=== PATIENT | female | born 1955 | race African-American/Black ===

== ENCOUNTER → 2021-06-15 00:36 | Outpatient (CLI) | payer MEDICARE, SELFPAY ==
[2021-06-15 19:52] LABS: SARS-CoV-2 RNA PCR Negative
== END ==
PROVIDERS: PCP Family Medicine; Visit Provider Family Medicine
DX: R68.89 Other general symptoms and signs (principal); Z20.822 Contact with and (suspected) exposure to COVID-19
CPT/HCPCS: C9803; U0003; U0005

== ENCOUNTER → 2022-08-29 13:49 | Outpatient (CLI) | payer MEDICARE, SELFPAY ==
--- NOTE | ~2022-08-29 | MM_ITS ---
EXAMINATION: MM screening khang BI w jackelyn HISTORY: Screening mammogram TECHNIQUE: Craniocaudal and mediolateral oblique 3-D tomosynthesis images were obtained and synthetic 2-D images were generated. CAD analysis was submitted and interpreted. COMPARISON: No prior mammogram is available for comparison at this institution. BREAST PARENCHYMAL COMPOSITION: There are scattered areas of fibroglandular density. FINDINGS: RIGHT BREAST: There is focal asymmetry in the anterior third of the upper-outer quadrant breast. LEFT BREAST: No suspicious mass, calcification, or architectural distortion are identified to suggest malignancy. IMPRESSION: 1. Right breast focal asymmetry. 2. Additional mammographic views and possible breast ultrasound are recommended. BI-RADS Category 0: Incomplete: Needs additional imaging evaluation. Reviewed, dictated and finalized at location A. ECHNICIAL PROPERTIES TECHNICIAN IMPRESSION: 1. Right breast focal asymmetry. 2. Additional mammographic views and possible breast ultrasound are recommended . BI-RADS Category 0: Incomplete: Needs additional imaging evaluation.
== END ==
PROVIDERS: PCP Family Medicine; Visit Provider Family Medicine
DX: Z12.31 Encounter for screening mammogram for malignant neoplasm of breast (principal); R92.8 Other abnormal and inconclusive findings on diagnostic imaging of breast
CPT/HCPCS: 77063; 77067

== ENCOUNTER 2022-09-18 08:28 | Outpatient (CLI) | payer MEDICARE, SELFPAY ==
--- NOTE | ~2022-09-18 | MMUS_ITS ---
EXAMINATION: MM diagnostic khang RT w jackelyn, US breast RT limited HISTORY: Follow-up right breast asymmetry TECHNIQUE: Additional 3-D tomosynthesis images of the right breast were performed and synthetic 2-D i mages were generated. CAD analysis was submitted and interpreted. High resolution Limited right breas t ultrasound was performed. COMPARISON: 08/29/2022 BREAST PARENCHYMAL COMPOSITION: Breast composed of scattered areas of fibroglandular density. FINDINGS: MAMMOGRAPHIC FINDINGS: Focal right breast asymmetry in the upper outer quadrant of the right breast anteriorly is persistent , although no discrete mass or architectural distortion is seen. No suspicious calcifications. ULTRASOUND: Limited right breast ultrasound: At 10-11 o'clock, 2 cm from the areola there is an oval circumscribe d hypoechoic mass with parallel orientation and posterior shadowing. No internal vascularity. This ma ss measures 10 x 10 x 6 mm. IMPRESSION: 1. Heterogeneous solid 1 cm right breast mass at 10-11:00, 2 cm from the nipple with posterior shadow ing. 2. Ultrasound-guided biopsy recommended. BI-RADS category 4, suspicious findings. Reviewed, dictated and finalized at location A. TREAT OPERATOR IMPRESSION: 1. Heterogeneous solid 1 cm right breast mass at 10-11:00, 2 cm from the nipple with posterior shadowing. 2. Ultrasound-guided biopsy recommended. BI-RADS category 4, suspicious findings.
== END 2022-09-18 08:29 ==
LOC: MICIMG 08:30
PROVIDERS: PCP Family Medicine; Visit Provider Family Medicine
DX: R92.8 Other abnormal and inconclusive findings on diagnostic imaging of breast (principal)
CPT/HCPCS: 76642; 77061; 77065; G0279

== ENCOUNTER 2022-10-09 10:03 | Outpatient (CLI) | payer MEDICARE, SELFPAY ==
--- NOTE | ~2022-10-09 | MMUS_ITS ---
EXAMINATION: US GUIDED NEEDLE BIOPSY DATE: 10/09/2022 15:04 RN DISEASE MANAGEMENT INDICATION: 1 cm right sonographic breast mass at 10-11 o'clock 2 cm from nipple TECHNIQUE AND FINDINGS: The risks and potential benefits of the procedure were discussed with the patient, and written inform ed consent was obtained. Timeout procedure was performed. After sterile preparation of the right [address], 1% lidocaine was utilized for local anesthesia. A 14G spring-loaded biopsy gun needle was advanced to the edge of the region of interest from a later al approach utilizing sonographic guidance. A total of 4 tissue core samples were obtained through t he lesion. An Inrad tissue marker clip was then placed at the biopsy site. Hemostasis was achieved. A sterile bandage was applied. The patient tolerated procedure well and there was no evidence of immediate complication. The patien t was given verbal instructions prior to departing from the department. A two view mammogram was perf ormed to document tissue marker clip placement. The tissue samples were submitted to surgical patholo gy for histologic analysis. IMPRESSION: 1. Successful ultrasound guided biopsy of right 10-11:00 breast mass with biopsy marker placement. P lease refer to pathology report for histologic analysis. Reviewed, dictated and finalized at [facility]. Reviewed, dictated and finalized at location A. DISEASE MANAGEMENT IMPRESSION: 1. Successful ultrasound guided biopsy of right 10-11:00 breast mass with biop sy marker placement. Please refer to pathology report for histologic analysis.
== END 2022-10-09 10:04 | disposition home or self-care (01) ==
PROVIDERS: PCP Family Medicine; Visit Provider Family Medicine
DX: R92.8 Other abnormal and inconclusive findings on diagnostic imaging of breast (principal)
CPT/HCPCS: 19083; 88305; A4648

== ENCOUNTER 2024-03-12 08:17 | Emergency (ER) | payer MEDICARE, SELFPAY ==
[2024-03-12 08:32] VITALS: BP 160/74; PULSE 81; RESP 14; TEMP 36.1; O2SAT 99
--- NOTE | 2024-03-12 08:35 | ED.URI ---
HPI - URI/Sore Throat General Chief Complaint: Upper Respiratory Infection Stated Complaint: Cold Symptoms Source: patient and RN notes reviewed Mode of arrival: ambulatory Limitations: no limitations History of Present Illness HPI Narrative: 68 y/o female presented for c/o cough and nasal congestion, pressure and drainage for almost 10 days. Taking delsym, zyrtec and mucinex. Cough was green, now clear, keeping her up at night. Denies sob, wheezing, n/v/d/f/c. MD elicited complaint: cough Related Data Home Medications Medication Instructions Recorded Confirmed amlodipine 5 mg tablet 5 mg PO DAILY 03/12/24 03/12/24 atorvastatin 20 mg tablet 20 mg PO DAILY 03/12/24 03/12/24 duloxetine 60 mg capsule,delayed 60 mg PO DAILY 03/12/24 03/12/24 release losartan 100 1 tablet PO DAILY 03/12/24 03/12/24 mg-hydrochlorothiazide 12.5 mg tablet montelukast 10 mg tablet 10 mg PO DAILY 03/12/24 03/12/24 omeprazole 20 mg capsule,delayed 20 mg PO DAILY 03/12/24 03/12/24 release Allergies Allergy/AdvReac Type Severity Reaction Status Date / Time Penicillins Allergy Mild Hives Verified 03/12/24 08:36 Review of Systems Review of Systems: CONSTITUTIONAL: denies malaise, chills, sweats, fever EYES: Denies visual changes, redness, or discharge ENT: Reports rhinorrhea, congestion, sinus pain, denies otalgia, sore throat CARDIOVASCULAR: Denies chest pain, palpitations, edema RESPIRATORY: Reports cough, post nasal drainage. Denies dyspnea GASTROINTESTINAL: Denies abdominal pain, nausea, vomiting, diarrhea SKIN: Denies rash or itching MUSCULOSKELETAL: denies myalgia NEUROLOGIC: Denies headache [facility] Past Medical History Medical History (Updated 03/12/24 @ 08:49 by Raquel Chavez APRN) Hypertension Exam Narrative: GENERAL: well-appearing, nontoxic no acute distress. HEAD: Normocephalic EYES: PERRLA, conjunctivae clear ENT: Mucous membranes moist. TM pearly collado with dull light reflex bilaterally; no tragal tenderness. Oropharynx not erythematous without lesions or exudate, no drooling, no hoarseness, no trismus, uvula midline. No tripod positioning, muffled voice, soft palate or pharyngeal wall bulging NECK: Supple. No lymphadenopathy CHEST: Exp wheezing to bilateral bases. No respiratory distress, speaks in full sentences. HEART: Regular rate and rhythm. No murmur heard. SKIN: Warm, dry, no rash. NEURO: Alert and oriented x3. PSYCH: Normal mood and affect Course Course Emergency Course: Patient is aware of diagnosis, understands and agrees to treatment plan. Anticipatory guidance given. Patient agrees to follow-up as directed and is aware of reasons to seek care at the emergency department. Portions of this record may have been created with voice recognition software Level of Care: Express Care Visit Vital Signs Vital signs: Vital Signs Temperature 97.0 F L 03/12/24 08:32 Pulse Rate 81 03/12/24 08:32 Respiratory Rate 14 03/12/24 08:32 Blood Pressure 160/74 H 03/12/24 08:32 Pulse Oximetry 99 03/12/24 08:32 Oxygen Delivery Room Air 03/12/24 08:32 Temperature 97.0 F L 03/12/24 08:32 Pulse Rate 81 03/12/24 08:32 Respiratory Rate 14 03/12/24 08:32 Blood Pressure 160/74 H 03/12/24 08:32 Pulse Oximetry 99 03/12/24 08:32 Oxygen Delivery Room Air 03/12/24 08:32 reviewed MDM - URI/Sore Throat MDM Narrative Medical decision making narrative: Discussed physical exam findings. Advised supportive measures and signs/symptoms to go to the ER. Pt is appropriate for outpt treatment and f/u. Differential Diagnosis Differential diagnosis: Likely upper respiratory infection, otitis media, sinusitis, viral infection and influenza Discharge Plan Discharge Clinical Impression: Sinusitis Patient Disposition: Home, Self-Care Condition: Stable Instructions: Antibiotic Form, Sinusitis (ED) Additional Instructions: Take antibiotic and steroid as directed
== END 2024-03-12 08:47 | disposition home or self-care (01) ==
PROVIDERS: Emergency Provider Nurse Practitioner Family
DX: J32.9 Chronic sinusitis, unspecified (principal); I10 Essential (primary) hypertension
CPT/HCPCS: 99213; G0463

== ENCOUNTER 2024-05-13 08:44 | Outpatient (CLI) | payer MEDICARE, SELFPAY ==
[2024-05-13 12:51] LABS: Hematocrit 38.9 % (37.0-47.0); Hemoglobin 12.3 g/dL (12.0-15.0); Mean Corpuscular HGB Conc 31.6 g/dl (32-36); Mean Corpuscular Volume 82.2 fl (80-100); Mean Platelet Volume 10.8 fl (7.4-10.4); Platelet Count Result 389 k/mm3 (150-375); Red Blood Count 4.73 M/mm3 (4.2-5.4); Red Cell Distribution Width 14.5 % (11.5-14.5); White Blood Count 6.5 K/mm3 (4.5-10.0)
[2024-05-13 12:57] LABS: Alanine Aminotransferase 66 U/L (6-35); Albumin Level 4.4 g/dL (3.5-5.1); Alkaline Phosphatase 85 U/L (38-126); Anion Gap 9 mmol/L (4-12); Aspartate Amino Transferase 71 U/L (14-36); Bilirubin,Total 0.3 mg/dL (0.2-1.3); Blood Urea Nitrogen 15 mg/dL (7-17); Calcium 9.4 mg/dL (8.4-10.2); Carbon Dioxide 30 mmol/L (22-30); Chloride 101 mmol/L (98-107); Cholesterol 146 mg/dL (0-200); Estimated Glomerular Filt Rate > 60; Glucose 98 mg/dL (65-110); HDL Direct 63 mg/dL; Potassium 3.9 mmol/L (3.4-5.0); Sodium 140 mmol/L (137-145); Triglycerides 90 mg/dL (<150)
[2024-05-13 13:07] LABS: LDL Cholesterol Direct 56 mg/dL
[2024-05-13 14:40] LABS: Hemoglobin A1C 5.9 % (<5.7)
== END 2024-05-13 08:45 | disposition home or self-care (01) ==
LOC: ANHGOSHLAB 08:46
PROVIDERS: PCP Family Medicine; Visit Provider Family Medicine
DX: E66.9 Obesity, unspecified (principal); I10 Essential (primary) hypertension; Z79.899 Other long term (current) drug therapy; R73.03 Prediabetes
CPT/HCPCS: 36415; 80053; 80061; 83036; 84443; 85027

== ENCOUNTER 2024-05-27 08:39 | Outpatient (CLI) | payer MEDICARE, SELFPAY ==
[2024-05-27 17:51] LABS: Alanine Aminotransferase 128 U/L (6-35); Albumin Level 4.4 g/dL (3.5-5.1); Alkaline Phosphatase 73 U/L (38-126); Anion Gap 11 mmol/L (4-12); Aspartate Amino Transferase 92 U/L (14-36); Bilirubin,Total 0.5 mg/dL (0.2-1.3); Blood Urea Nitrogen 13 mg/dL (7-17); Calcium 9.4 mg/dL (8.4-10.2); Carbon Dioxide 29 mmol/L (22-30); Chloride 99 mmol/L (98-107); Estimated Glomerular Filt Rate > 60; Glucose 86 mg/dL (65-110); Potassium 3.8 mmol/L (3.4-5.0); Sodium 139 mmol/L (137-145)
== END 2024-05-27 08:40 | disposition home or self-care (01) ==
PROVIDERS: PCP Family Medicine; Visit Provider Family Medicine
DX: R74.8 Abnormal levels of other serum enzymes (principal)
CPT/HCPCS: 36415; 80053

== ENCOUNTER 2024-05-29 08:11 | Outpatient (CLI) | payer MEDICARE, SELFPAY ==
--- NOTE | ~2024-05-29 | US_ITS ---
US abdomen complete EXAMINATION: US Abdomen Complete INDICATION: Abnormal laboratory studies PROCEDURE: Realtime High Resolution abdomen ultrasound. COMPARISON: No prior studies for comparison FINDINGS: Gallbladder within normal limits. No gallstones, pericholecystic fluid, gallbladder wall t hickening or biliary dilatation. Common bile duct measures 4 mm. Liver echotexture is increased, consistent with fatty infiltration.. There are liver cysts, largest m easuring 1.9 cm in the right hepatic lobe. Pancreas within normal limits. Pancreatic tail is obscure d by bowel gas. Spleen is unremarkeable. Renal echotexture is within normal limits bilaterally witho ut hydronephrosis, contour deforming mass or renal stone. Right kidney measures 9 cm. Left kidney tiago sures 9 cm. Visualized aspects of the aorta and IVC are within normal limits. Portal vein is patent. No sonograph ic Lockett's sign indicated by the technologist. IMPRESSION: 1: Fatty infiltration of the liver. Liver cysts. Reviewed, dictated and finalized at location B.
== END 2024-05-29 08:12 ==
LOC: GOSHIMG 08:12
PROVIDERS: PCP Family Medicine; Visit Provider Nurse Practitioner
DX: R74.8 Abnormal levels of other serum enzymes (principal); K76.0 Fatty (change of) liver, not elsewhere classified; K76.89 Other specified diseases of liver
CPT/HCPCS: 76700

== ENCOUNTER 2024-06-09 08:47 | Outpatient (CLI) | payer MEDICARE, SELFPAY ==
[2024-06-09 14:02] LABS: Alanine Aminotransferase 109 U/L (6-35); Albumin Level 4.4 g/dL (3.5-5.1); Alkaline Phosphatase 69 U/L (38-126); Aspartate Amino Transferase 72 U/L (14-36); Bilirubin,Total 0.5 mg/dL (0.2-1.3)
== END 2024-06-09 08:48 | disposition home or self-care (01) ==
PROVIDERS: PCP Family Medicine; Visit Provider Family Medicine
DX: R74.8 Abnormal levels of other serum enzymes (principal)
CPT/HCPCS: 36415; 80076

== ENCOUNTER 2024-07-07 09:06 | Outpatient (CLI) | payer MEDICARE, SELFPAY ==
[2024-07-07 14:37] LABS: Cholesterol 210 mg/dL (0-200); HDL Direct 64 mg/dL; Triglycerides 80 mg/dL (<150)
[2024-07-07 14:45] LABS: Hematocrit 39.6 % (37.0-47.0); Mean Corpuscular HGB Conc 30.3 g/dl (32-36); Mean Corpuscular Hemoglobin 24.9 pg (26-34); Mean Corpuscular Volume 82.3 fl (80-100); Mean Platelet Volume 10.1 fl (7.4-10.4); Platelet Count Result 390 k/mm3 (150-375); Red Blood Count 4.81 M/mm3 (4.2-5.4); Red Cell Distribution Width 14.2 % (11.5-14.5); White Blood Count 6.3 K/mm3 (4.5-10.0)
[2024-07-07 14:48] LABS: LDL Cholesterol Direct 95 mg/dL
[2024-07-07 17:18] LABS: Hemoglobin A1C 5.9 % (<5.7)
[2024-07-08 15:44] LABS: Alanine Aminotransferase 34 U/L (6-35); Albumin Level 4.2 g/dL (3.5-5.1); Alkaline Phosphatase 68 U/L (38-126); Anion Gap 6 mmol/L (4-12); Aspartate Amino Transferase 35 U/L (14-36); Bilirubin,Total 0.4 mg/dL (0.2-1.3); Blood Urea Nitrogen 14 mg/dL (7-17); Calcium 9.5 mg/dL (8.4-10.2); Carbon Dioxide 30 mmol/L (22-30); Chloride 103 mmol/L (98-107); Estimated Glomerular Filt Rate > 60; Glucose 87 mg/dL (65-110); Potassium 4.3 mmol/L (3.4-5.0); Sodium 139 mmol/L (137-145)
== END 2024-07-07 09:07 | disposition home or self-care (01) ==
LOC: ANHGOSHLAB 09:08
PROVIDERS: PCP Family Medicine; Visit Provider Family Medicine
DX: R73.03 Prediabetes (principal); E66.9 Obesity, unspecified; Z79.899 Other long term (current) drug therapy; I10 Essential (primary) hypertension
CPT/HCPCS: 36415; 80053; 80061; 83036; 84443; 85027

== ENCOUNTER 2024-10-12 10:01 | Outpatient (CLI) | payer MEDICARE, SELFPAY ==
[2024-10-12 14:38] LABS: Alanine Aminotransferase 29 U/L (6-35); Albumin Level 4.3 g/dL (3.5-5.1); Alkaline Phosphatase 72 U/L (38-126); Anion Gap 5 mmol/L (4-12); Aspartate Amino Transferase 48 U/L (14-36); Bilirubin,Total 0.7 mg/dL (0.2-1.3); Blood Urea Nitrogen 14 mg/dL (7-17); Calcium 9.7 mg/dL (8.4-10.2); Carbon Dioxide 32 mmol/L (22-30); Chloride 102 mmol/L (98-107); Cholesterol 211 mg/dL (0-200); Estimated Glomerular Filt Rate > 60; Glucose 88 mg/dL (65-110); HDL Direct 70 mg/dL; Potassium 3.8 mmol/L (3.4-5.0); Sodium 139 mmol/L (137-145); Triglycerides 100 mg/dL (<150)
[2024-10-12 14:49] LABS: LDL Cholesterol Direct 94 mg/dL; Vitamin D 25 Hydroxy 52.7 ng/mL
[2024-10-12 15:34] LABS: Hemoglobin A1C 5.8 % (<5.7)
== END 2024-10-12 10:02 | disposition home or self-care (01) ==
LOC: ANHGOSHLAB 10:02
PROVIDERS: PCP Family Medicine; Visit Provider Nurse Practitioner
DX: E55.9 Vitamin D deficiency, unspecified (principal); E78.5 Hyperlipidemia, unspecified; I10 Essential (primary) hypertension; R73.03 Prediabetes
CPT/HCPCS: 36415; 80053; 80061; 82306; 83036

== ENCOUNTER 2025-03-05 12:34 | Outpatient (CLI) | payer MEDICARE, SELFPAY ==
--- NOTE | ~2025-03-05 | MM_ITS ---
EXAMINATION: MM screening khang BI w jackelyn HISTORY: Screening TECHNIQUE: Craniocaudal and mediolateral oblique 3-D tomosynthesis images were obtained and synthetic 2-D images were generated. CAD analysis was submitted and interpreted. COMPARISON: Comparison to multiple prior studies sequentially, with oldest reviewed study dated 08/02. BREAST PARENCHYMAL COMPOSITION: Not dense: There are scattered areas of fibroglandular density. FINDINGS: There is no evidence of suspicious mass, calcification, or architectural distortion to sugg est malignancy in either breast. There has been no suspicious interval change. IMPRESSION: 1. No mammographic evidence of malignancy. 2. Recommend routine screening mammography in one year. BI-RADS Category 1: Negative Reviewed, dictated and finalized at location B.
== END 2025-03-05 12:35 | disposition home or self-care (01) ==
LOC: MICIMG 12:35
PROVIDERS: PCP Family Medicine; Visit Provider Nurse Practitioner
DX: Z12.31 Encounter for screening mammogram for malignant neoplasm of breast (principal)
CPT/HCPCS: 77063; 77067

== ENCOUNTER 2025-03-09 08:42 | Outpatient (CLI) | payer MEDICARE, SELFPAY ==
--- OUTSIDE RECORDS SUMMARY | 2025-03-09 08:57 | XMS_ITS | Clinical Summary ---
Author Organization [facility] Address [address] [place] [id number] Care Team Providers Care Conditioning Machine Operator Name Role Phone Unavailable Primary Care Provider Unavailabl e Allergies Active Allergy Reactions Criticality Noted Date Comments Penicillins Hives,Rash Medications losartan (COZAAR) 100 MG Tablet Active omeprazole (PRILOSEC) 20 MG CAPSULE DELAYED RELEASE Active AMLODIPINE BESY-BENAZEPRIL HCL PO Active DULoxetine (CYMBALTA) [address] Particles Active Active Problems Problem Noted Date Diagnosed Date Esophageal reflux Immunizations Immunization Administration Dates Next Due Covid-19, Mrna, Lnp-s, Pf, 30 Mcg/0.3 Ml Dose (P jerseyzer) 07/28/2021 Social History Tobacco Use Types Packs/Day Years Used Date Smoking Tobacco: Never Assessed Comments Unknown Sex and Gender Information Value Date Recorded Sex Assigned at Not on file Legal Sex Female 12:33 AM CDT Gender Identity Not on file Sexual Orientation Not on file Plan of Treatment Health Maintenance Due Date Last Done Comments DEXA Bone Density 1955 Hepatitis C Virus (HCV) Screening 1955 TdaP Immunization 1955 Colonoscopy 2001 Colorectal Cancer Screening 2001 Cologuard 2006 Immunochemical Fecal Occult Blood 2006 Mammogram 2006 Pneumococcal Immunization (50+ years) (1 of 1 - PCV) 2006 Zoster Immunization (1 of 2) 2006 Influenza Immunization (#1) 05/31/202406/30, 08/05/2019, 07/24/2018, Additional history exists SARS-COV-2 Immunization ( season) 2024 07/28/2021, 01/08/2021, 12/15/2020 Respiratory Syncytial Virus (RSV) Immunization (Adult) (1 - 1-dose 75+ series) 2031 Hepatitis B Immunization Aged Out No longer eligible based on patient's age to complete this topic Meningococcal Immunization (ACWY) Aged Out No longer eligible based on patient's age to complete this topic Rotavirus Immunization Aged Out No lo nger eligible based on patient's age to complete this topic
--- OUTSIDE RECORDS SUMMARY | 2025-03-09 08:57 | XMS_ITS | Continuity of Care Document ---
Author Name [facility] Organization [facility] Care Team Providers Care Automotive Internet Sales Manager Name Role Phone [facility] Unavailable Unavailable Social History Combined list of available smoking, tobacco, and other social history from Department of Defense and Veterans Affairs facilities. Social History Type Response Date Comment Sourc e This section is an empty social history section. [facility]
[2025-03-09 16:54] LABS: Alanine Aminotransferase 26 U/L (6-35); Albumin Level 4.4 g/dL (3.5-5.1); Alkaline Phosphatase 71 U/L (38-126); Anion Gap 7 mmol/L (4-12); Aspartate Amino Transferase 83 U/L (14-36); Bilirubin,Total 0.4 mg/dL (0.2-1.3); Blood Urea Nitrogen 15 mg/dL (7-17); Calcium 9.5 mg/dL (8.4-10.2); Carbon Dioxide 29 mmol/L (22-30); Chloride 104 mmol/L (98-107); Cholesterol 180 mg/dL (0-200); Estimated Glomerular Filt Rate 58; Glucose 81 mg/dL (65-110); HDL Direct 66 mg/dL; Potassium 3.8 mmol/L (3.4-5.0); Sodium 140 mmol/L (137-145); Total Protein 7.6 g/dL (6.3-8.2); Triglycerides 83 mg/dL (<150)
[2025-03-09 17:04] LABS: Hemoglobin A1C 5.8 % (<5.7)
[2025-03-09 17:06] LABS: LDL Cholesterol Direct 62 mg/dL
[2025-03-09 17:37] LABS: Hematocrit 39.1 % (37.0-47.0); Mean Corpuscular HGB Conc 30.7 g/dl (32-36); Mean Corpuscular Hemoglobin 24.9 pg (26-34); Mean Corpuscular Volume 81.3 fl (80-100); Mean Platelet Volume 10.5 fl (7.4-10.4); Platelet Count Result 381 k/mm3 (150-375); Red Blood Count 4.81 M/mm3 (4.2-5.4); Red Cell Distribution Width 14.7 % (11.5-14.5); White Blood Count 6.8 K/mm3 (4.5-10.0)
== END 2025-03-09 08:43 | disposition home or self-care (01) ==
PROVIDERS: PCP Family Medicine; Visit Provider Family Medicine
DX: Z79.899 Other long term (current) drug therapy (principal); I10 Essential (primary) hypertension; R73.03 Prediabetes; R74.8 Abnormal levels of other serum enzymes; K76.0 Fatty (change of) liver, not elsewhere classified; Z11.59 Encounter for screening for other viral diseases
CPT/HCPCS: 36415; 80053; 80061; 82248; 83036; 84443; 85027

== ENCOUNTER 2025-08-03 08:12 | Outpatient (CLI) | payer MEDICARE, SELFPAY ==
[2025-08-03 13:09] LABS: Hematocrit 38.4 % (37.0-47.0); Hemoglobin 11.9 g/dL (12.0-15.0); Mean Corpuscular HGB Conc 31.0 g/dl (32-36); Mean Corpuscular Hemoglobin 25.4 pg (26-34); Mean Corpuscular Volume 82.1 fl (80-100); Platelet Count Result 379 k/mm3 (150-375); Red Blood Count 4.68 M/mm3 (4.2-5.4); White Blood Count 6.3 K/mm3 (4.5-10.0)
[2025-08-03 13:18] LABS: Alanine Aminotransferase 44 U/L (6-35); Albumin Level 4.5 g/dL (3.5-5.1); Alkaline Phosphatase 73 U/L (38-126); Anion Gap 8 mmol/L (4-12); Aspartate Amino Transferase 56 U/L (14-36); Bilirubin,Total 0.5 mg/dL (0.2-1.3); Blood Urea Nitrogen 15 mg/dL (7-17); Calcium 9.6 mg/dL (8.4-10.2); Carbon Dioxide 29 mmol/L (22-30); Chloride 102 mmol/L (98-107); Cholesterol 184 mg/dL (0-200); Estimated Glomerular Filt Rate 58; Glucose 88 mg/dL (65-110); HDL Direct 59 mg/dL; Potassium 3.9 mmol/L (3.4-5.0); Sodium 139 mmol/L (137-145); Total Protein 7.9 g/dL (6.3-8.2); Triglycerides 86 mg/dL (<150)
[2025-08-03 14:08] LABS: Thyroid Stimulating Hormone 1.820 uIU/mL (0.465-4.680)
[2025-08-03 15:54] LABS: Hemoglobin A1C 5.7 % (<5.7)
== END 2025-08-03 08:13 | disposition home or self-care (01) ==
PROVIDERS: PCP Family Medicine; Visit Provider Family Medicine
DX: R74.8 Abnormal levels of other serum enzymes (principal); Z79.899 Other long term (current) drug therapy; I10 Essential (primary) hypertension; E78.5 Hyperlipidemia, unspecified; R73.03 Prediabetes; E66.9 Obesity, unspecified
CPT/HCPCS: 36415; 80053; 80061; 83036; 84443; 85027

== ENCOUNTER 2025-08-09 09:01 | Outpatient (CLI) | payer MEDICARE, SELFPAY ==
--- NOTE | ~2025-08-09 | US_ITS ---
LIMITED ABDOMINAL ULTRASOUND INDICATION: Abnormal levels of other serum enzymes COMPARISON: May 29, 2024 FINDINGS: Liver: There is a 1.9 cm cyst in the anterior left lobe of the liver. Although it is only hypoechoic on the current study, it did appear cystic on the prior study. It has not significantly changed in size. Additionally, there is an anterior cyst in the liver which has decreased in size to 1.3 cm. Common bile duct: Normal in size. Gallbladder: The gallbladder wall is normal in thickness. No stones or sludge were seen. Lockett's sign: Negative Pancreas: Obscured by overlying bowel gas. Right kidney: Right kidney appears normal on the images provided. IMPRESSION: One liver cyst has decreased in size. Otherwise unchanged. Reviewed, dictated and finalized at location A. ARCHITECT
== END 2025-08-09 09:02 | disposition home or self-care (01) ==
LOC: GOSHIMG 09:01
PROVIDERS: PCP Family Medicine; Visit Provider Family Medicine
DX: R74.8 Abnormal levels of other serum enzymes (principal); K76.89 Other specified diseases of liver; I10 Essential (primary) hypertension; R73.03 Prediabetes; E66.9 Obesity, unspecified; Z79.899 Other long term (current) drug therapy
CPT/HCPCS: 76705